=== PATIENT | female | born 1980 | race Native Hawaiian/Other Pacific Islander ===

== ENCOUNTER → 2019-01-06 | Outpatient (CLI) | payer OTHER ==
[~2019-01-06] MED LIST: ALBIPROI INH; ALBU90OI INH; AMOX500 PO; AZIT250 PO; BENZ100A PO; CARI350 PO; CEPH500 PO; Camila0.35 MG PO; Cyclobenzaprine5 MG PO; GUAPHELA PO; Golytely Solu4000 ML PO; HYDACE5 PO; HYDGUAL120 PO; IBUP600 PO; IBUP800 PO; LORA1 PO; MEDR150I; MONT10T PO; Naprosyn500 MG PO; OXYACE5T PO; PENVK500 PO; PRED20 PO; PROCODE120 PO; PROM25 PO; PSEU120ER PO; RXCEPH500 PO; RXHYDACE PO; RXPROM25 PO; SERT25; SULTRIDS PO
[2019-01-08 15:06] LABS: HPV 16 Negative (Negative); HPV 18 Negative (Negative); HPV OTHER HR TYPES Negative (Negative)
== END | disposition home or self-care (01) ==
LOC: LAB SRC 16:15 → LAB SHORT 16:15
PROVIDERS: Registered Nurse
DX: Z12.4 Encounter for screening for malignant neoplasm of cervix (principal)
CPT/HCPCS: 87624; G0123

== ENCOUNTER 2019-03-26 02:19 | Emergency (ER) | payer OTHER ==
[~2019-03-26] VITALS: Ht 170.2 cm; Wt 113.4 kg
[~2019-03-26 02:19] MED LIST changes: -Cyclobenzaprine5 MG PO; -MONT10T PO
[2019-03-26] MEDS ORDERED: MONT10T PO (02:39)
[2019-03-26] MEDS ORDERED: ALBU90OI INH (02:39)
[2019-03-26] MEDS ORDERED: Cyclobenzaprine5 MG PO (02:59)
== END 2019-03-26 04:19 | disposition home or self-care (01) ==
LOC: ER 02:19
DX: M62.838 Other muscle spasm (principal); Z87.891 Personal history of nicotine dependence; Z91.030 Bee allergy status; Z79.899 Other long term (current) drug therapy
CPT/HCPCS: 96372; 99283-25; J1885

== ENCOUNTER 2019-08-15 20:31 | Emergency (ER) | payer OTHER ==
[~2019-08-15] VITALS: Ht 170.2 cm; Wt 115.7 kg
[~2019-08-15 20:31] MED LIST changes: +Cyclobenzaprine5 MG PO; +MONT10T PO
[2019-08-15] MEDS ORDERED: Prednisone20 MG PO (23:29)
== END 2019-08-15 23:41 | disposition home or self-care (01) ==
LOC: ER 20:31
DX: J45.909 Unspecified asthma, uncomplicated (principal); Z91.030 Bee allergy status; Z79.899 Other long term (current) drug therapy; Z87.891 Personal history of nicotine dependence
CPT/HCPCS: 71046; 94644; 99283-25; J7512

== ENCOUNTER 2019-09-09 10:54 | Inpatient (IN) | payer OTHER ==
[~2019-09-09] VITALS: Ht 170.2 cm; Wt 117.7 kg
[~2019-09-09 10:54] MED LIST changes: +Prednisone20 MG PO
[2019-09-09 11:37] LABS: BASOPHILS ABSOLUTE AUTO 0.04 K/mm3 (0.00-0.23); BASOPHILS PERCENT AUTO 0 % (0-2); EOSINOPHILS ABSOLUTE AUTO 0.16 K/mm3 (0.00-0.68); EOSINOPHILS PERCENT AUTO 1 % (0-6); Hematocrit 46.2 % (33.0-51.0); Hemoglobin 15.3 g/dL (11.5-16.0); IMMATURE GRAN ABSOLUTE AUTO 0.05 K/mm3 (0.00-0.10); IMMATURE GRAN PERCENT AUTO 0 % (0-1); LYMPHOCYTES ABSOLUTE AUTO 0.69 K/mm3 (0.84-5.20); LYMPHOCYTES PERCENT AUTO 5 % (21-46); MONOCYTES ABSOLUTE AUTO 0.68 K/mm3 (0.16-1.47); MONOCYTES PERCENT AUTO 5 % (4-13); Mean Corpuscular HGB 32.1 pg (26.0-34.0); Mean Corpuscular HGB Conc 33.1 g/dL (31.5-36.5); Mean Corpuscular Volume 97 fL (80-100); Mean Platelet Volume 8.7 fL (9.1-12.4); NEUTROPHILS ABSOLUTE AUTO 12.25 K/mm3 (1.96-9.15); NEUTROPHILS PERCENT AUTO 88 % (41-73); Platelet Count 300 K/mm3 (150-400); RDW Coefficient Variation 12.9 % (11.7-14.2); RDW Standard Deviation 46.5 fL (35.1-46.3); Red Blood Cell Count 4.76 M/mm3 (3.80-5.20); White Blood Cell Count 13.87 K/mm3 (4.00-11.30)
[2019-09-09 12:00] LABS: Alanine Aminotransfer (ALT/SGP 34 U/L (12-78); Albumin, Blood 3.6 g/dL (3.4-5.0); Albumin/Globulin Ratio 0.9 (0.8-1.8); Alk Phos 94 U/L (50-136); Anion Gap 9 mmol/L (6-16); Aspartate Aminotrans (AST/SGOT 18 U/L (12-37); Bilirubin, Total 0.5 mg/dL (0.1-1.0); Blood Urea Nitrogen 9 mg/dL (8-24); Bun/Creatinine Ratio 11.3 (12.0-20.0); CO2, Blood 23 mmol/L (21-32); Calcium, Blood 8.9 mg/dL (8.5-10.1); Chloride, Blood 108 mmol/L (98-108); Globulin, Blood 4.2 g/dL (2.2-4.0); Glomerular Filtration Rate >60 (60-); Glucose, Blood 124 mg/dL (70-99); Potassium, Blood 3.4 mmol/L (3.5-5.5); Sodium, Blood 140 mmol/L (136-145); Total Protein, Blood 7.8 g/dL (6.4-8.2); Troponin I <0.015 ng/mL (0.000-0.040)
[2019-09-09] MEDS ORDERED: FLUT1DIS2 INH (13:15)
[2019-09-09] MEDS ORDERED: Cetirizine HCl10 MG PO (13:17)
[2019-09-09] MEDS ORDERED: PRED10 PO (13:36)
[2019-09-09] MEDS ORDERED: CALCIUM 600 +1 EA11 PO (15:15)
[2019-09-09] MEDS ORDERED: Microgestin1 EAC1 PO (15:17)
--- NOTE | 2019-09-09 16:55 | NUR ---
PT ARRIVED TO THE MEDICAL FLOOR FROM THE ER VIA STRETCHER, A/OX3, PLEASANT AND COOPERATIVE, THE PT WAS ABLE TO TRANSFER TO THE BED WITH MINIMAL ASSIST, THE PT WAS VERY SOB AND WHEEZY WITH LITTLE ACTIVITY, A BREATHING TX WAS ORDERED AND GIVEN BY RT ON ARRIVAL TO THE FLOOR, PT WAS ORIENTED TO THE ROOM LAYOUT AND CALL SYSTEM, PT ANSWERS QUESTIONS APPROPRIATLY, PT DECLINED THE SCUD'S , HOWEVER, ACCEPTED LOVENOX FOR DVT PREVENTION, CALL LIGHT IN REACH, WILL CONTINUE TO MONITOR AND ASSESS FOR CHANGES
[2019-09-09 19:32] LABS: Adenovirus Not Detected (NOT DETECT); Bordetella pertussis Not Detected (NOT DETECT); Chlamydophila pneumoniae Not Detected (NOT DETECT); Coronavirus 229E Not Detected (NOT DETECT); Coronavirus HKU1 Not Detected (NOT DETECT); Coronavirus NL63 Not Detected (NOT DETECT); Coronavirus OC43 Not Detected (NOT DETECT); Human Metapneumovirus Not Detected (NOT DETECT); Human Rhinovirus/Enterovirus Detected (NOT DETECT); Influenza A Not Detected (NOT DETECT); Influenza A/2009-H1 Not Detected (NOT DETECT); Influenza A/H1 Not Detected (NOT DETECT); Influenza A/H3 Not Detected (NOT DETECT); Influenza B Not Detected (NOT DETECT); Mycoplasma pneumoniae Not Detected (NOT DETECT); Parainfluenza Virus 1 Not Detected (NOT DETECT); Parainfluenza Virus 2 Not Detected (NOT DETECT); Parainfluenza Virus 3 Not Detected (NOT DETECT); Parainfluenza Virus 4 Not Detected (NOT DETECT); Respiratory Syncytial Virus Not Detected (NOT DETECT)
--- NOTE | 2019-09-10 | NUR ---
09/09/191999 PT HAS WHEEZING THROUGHOUT WITH DYSPNEA NOTED WITH SLIGHT EXERTION; DENIES PAIN OR NAUSEA; RECEIVING NEBULIZER TREATMENTS PRN VIA RESPIRATORY THERAPY.
[2019-09-10 05:02] LABS: BASOPHILS ABSOLUTE AUTO 0.01 K/mm3 (0.00-0.23); BASOPHILS PERCENT AUTO 0 % (0-2); EOSINOPHILS ABSOLUTE AUTO 0.01 K/mm3 (0.00-0.68); EOSINOPHILS PERCENT AUTO 0 % (0-6); Hematocrit 42.8 % (33.0-51.0); Hemoglobin 14.2 g/dL (11.5-16.0); IMMATURE GRAN ABSOLUTE AUTO 0.05 K/mm3 (0.00-0.10); IMMATURE GRAN PERCENT AUTO 0 % (0-1); LYMPHOCYTES ABSOLUTE AUTO 0.64 K/mm3 (0.84-5.20); LYMPHOCYTES PERCENT AUTO 5 % (21-46); MONOCYTES ABSOLUTE AUTO 0.21 K/mm3 (0.16-1.47); MONOCYTES PERCENT AUTO 2 % (4-13); Mean Corpuscular HGB 31.6 pg (26.0-34.0); Mean Corpuscular HGB Conc 33.2 g/dL (31.5-36.5); Mean Corpuscular Volume 95 fL (80-100); Mean Platelet Volume 8.9 fL (9.1-12.4); NEUTROPHILS ABSOLUTE AUTO 12.86 K/mm3 (1.96-9.15); NEUTROPHILS PERCENT AUTO 93 % (41-73); Platelet Count 290 K/mm3 (150-400); RDW Coefficient Variation 13.2 % (11.7-14.2); RDW Standard Deviation 46.6 fL (35.1-46.3); Red Blood Cell Count 4.49 M/mm3 (3.80-5.20); White Blood Cell Count 13.78 K/mm3 (4.00-11.30)
[2019-09-10 05:35] LABS: Anion Gap 6 mmol/L (6-16); Blood Urea Nitrogen 9 mg/dL (8-24); Bun/Creatinine Ratio 13.2 (12.0-20.0); CO2, Blood 22 mmol/L (21-32); Calcium, Blood 8.6 mg/dL (8.5-10.1); Chloride, Blood 113 mmol/L (98-108); Creatinine, Blood 0.68 mg/dL (0.40-1.00); Glomerular Filtration Rate >60 (60-); Glucose, Blood 138 mg/dL (70-99); Potassium, Blood 4.2 mmol/L (3.5-5.5); Sodium, Blood 141 mmol/L (136-145)
--- NOTE | 2019-09-10 05:55 | NUR ---
SHIFT SUMMARY: 39 Y/O OB[place] FEMALE HAD RESTLESS NIGHT AT TIMES THIS SHIFT WITH LUNG SOUNDS WHEEZING THROUGHOUT WITH DYPSNEA NOTED SLIGHT ACTIVITY; TALKING LOW VOICE [place]; DENIES PAIN OR NAUSEA; BED LOW POSITION AND CALL LIGHT AT SIDE; ABLE AMBULATE TO BATHROOM AND BACK THIS SHIFT PER SELF; PT RECEIVED PRN NEBULIZER TREATMENTS VIA RESPIRATORY THERAPY.
--- NOTE | 2019-09-10 15:36 | NUR ---
Upon receiving an admit referral for spiritual care, I visit patient. Patient shares about her asthma issues, about her housing arrangement that may exacerbate the issue with the mold problems and about [place] of people that surround her life. We discuss patient's spiritual journey. Patient shares her personal thoughts on God and yazidism. I listen empathically, normalize patient's experience encourage self-care and provide spiritual guidance and prayer. Patient responds well and shows signs of improved spiritual direction and peace. I will continue to remain available to patient and family.
--- NOTE | 2019-09-10 18:17 | NUR ---
PT STILL EXPERIENCING SOB WITH ACTIVITY, EXP WHEEZE T/O LUNGS. IV SOLUMEDROL CHANGED TO PO PREDNISONE. PT DOES SAY THAT SHE IS FEELING BETTER, DR SUH TO [facility] TOMORROW. PT HOPES TO BE DISCHARGED. NO ACUTE CHANGES NOTED THIS SHIFT, WILL CONTINUE TO MONITOR AND REPORT TO ONCOMING RN
--- NOTE | 2019-09-11 05:29 | NUR ---
SHIFT SUMMARY: 39 Y/O OB[place] FEMALE RESTED COMFORTABLY ALL SHIFT WITH NO DYSPNEA OR SOB NOTED WITH ACTIVITY; LS SOUNDS ARE DIMINISHED THROUGHOUT WITH OCCASIONAL NON PRODUCTIVE COUGH; PT APPEARS READY FOR POSSIBLE DISCHARGE HOME TODAY; PT TAUGHT NEED FOR SMOKING CESSATION DUE TO ASTHMA WITH ACKNOWLEDGEMENT NOTED; PT DENIES PAIN OR NAUSEA; BED LOW POSITION WITH CALL LIGHT AT SIDE.
--- NOTE | 2019-09-11 19:24 | NUR ---
PT DOING BETTER THIS AFTERNOON, ABLE TO AMBULATE SOME IN HALLWAY. PO PREDNISONE DISCONTINUED AND IV SOLUMEDROL STARTED. NO C/O PAIN TODAY, NO ACUTE CHANGES NOTED THIS SHIFT, BEDSIDE REPORT GIVEN
--- NOTE | 2019-09-12 06:14 | NUR ---
SHIFT SUMMARY PT IS A 39 Y/O FEMALE, ADMITTED FOR ASTHMA EXACERBATION. SHE IS A&O X 4, AND INDEPENDENT IN THE ROOM. PT DENIED ANY ACUTE SOB, THOUGH LUNGS HAD COARSE WHEEZES THROUGHOUT. PT REMAINS ON RA, SATTING > 90%. NO COMPLAINTS OF PAIN OR NAUSEA. VITAL SIGNS STABLE. NO ACUTE CHANGES IN PT CONDITION NOTED. WILL CONTINUE TO MONITOR AND TREAT PER EMAR UNTIL HAND OFF TO DAY SHIFT RN.
[2019-09-12] MEDS ORDERED: Prednisone20 MG PO (11:46)
--- NOTE | 2019-09-12 18:17 | NUR ---
DISCHARGE PT DISCHARGED TO HOME. THIS RN EXPLAINED DISCHARGE INSTRUCTIONS AND MEDICATIONS TO PT AND SHE REPORTS SHE UNDERSTANDS. SOLUMEDROL ADMINISTERED PER ORDERS FOR PT TO BE DISCHARGED. IV REMOVED WITHOUT DIFFICULTY. PT TRANSFERRED TO PRIVATE VEHICLE VIA WHEELCHAIR. BELONGINGS WITH PT.
== END 2019-09-12 16:35 | disposition home or self-care (01) | DRG 202 ==
LOC: ER 10:54 → MEDS 10:55
PROVIDERS: Emergency Medicine; Nurse Practitioner Acute Care; ADMIT Internal Medicine
DX: J45.901 Unspecified asthma with (acute) exacerbation (principal); R65.10 Systemic inflammatory response syndrome (SIRS) of non-infectious origin without acute organ dysfunction; Z68.41 Body mass index [BMI] 40.0-44.9, adult; E87.6 Hypokalemia; E66.01 Morbid (severe) obesity due to excess calories; B97.89 Other viral agents as the cause of diseases classified elsewhere; Z87.891 Personal history of nicotine dependence
CPT/HCPCS: 0099U; 36415; 71046; 80048; 80053; 84443; 84484; 85025; 93005; 93010; 94640; 94760; 96361; 96365; 96372; 96375; 96376; 99285-25; G0378; J1650; J2930; J3475; J7030; J7512

== ENCOUNTER → 2020-05-04 | Outpatient (CLI) | payer OTHER ==
[~2020-05-04] MED LIST changes: +CALCIUM 600 +1 EA11 PO; +Cetirizine HCl10 MG PO; +FLUT1DIS2 INH; +Microgestin1 EAC1 PO; +PRED10 PO
[2020-05-05 11:37] LABS: Candida species (DNA Probe) Negative (NEGATIVE); G. vaginalis (DNA Probe) Positive (NEGATIVE); T. vaginalis (DNA Probe) Negative (NEGATIVE)
== END | disposition home or self-care (01) ==
LOC: LAB SHORT 17:22 → LAB 17:22
PROVIDERS: Surgery Vascular Surgery
DX: R59.0 Localized enlarged lymph nodes (principal)
CPT/HCPCS: 87480; 87510; 87660

== ENCOUNTER 2020-06-20 07:00 | Day surgery (SDC) | payer OTHER ==
[~2020-06-20] VITALS: Ht 172.7 cm; Wt 116.5 kg
[~2020-06-20 07:00] MED LIST changes: +XYZAL5 MG PO
[2020-06-20] MEDS ORDERED: ALBU90OI INH (07:33)
--- NOTE | 2020-06-20 07:53 | NUR ---
Ambulatory in Day Surgery. History, Chart, Medications and Allergies reviewed before start of procedure.Patient confirms NPO status and agrees with scheduled surgery. Patient reports completing Chlorhexadine shower X2 prior to admission to hospital.Surgical site prepped with 2% Chlorhexidine cloth wipe. Lungs clear T/O to Auscultation. Patient States Post-Procedure ride home has been arranged WITH BOYFRIEND.
--- NOTE | 2020-06-20 10:35 | NUR ---
DISCHARGE SUMMARY PT A&OX4, VSS, WALKED OFF UNIT (REFUSED WC), WITH RN, TO MEET BOYFRIEND/LEAD ASSEMBLER IN WAITING AREA, WITH ALL PERSONAL POSSESSIONS INCLUDING DC PACKET AND 1 NARC SCRIPT. DC INSTRUCTIONS PROVIDED. PT REP UNDERSTANDING THOSE INSTRUCTIONS. IV DC'D.
[2020-06-20 10:48] LABS: Performing Lab SYMBIODX; Test Name FLOW CYTOMETRY
--- NOTE | 2020-06-20 16:45 | NUR ---
06/20/20 1645 Concepcion Leija VERIFICATIONS: EDIT CHART.
[2020-06-23 13:50] LABS: Performing Lab SYMBIODX; Test Name TISSUE BIOPSY
== END 2020-06-20 10:35 | disposition home or self-care (01) ==
LOC: ORSCMMR 07:00 → ORD 08:30 → ORSCMMR 10:35
PROVIDERS: Surgery
PROC: 07BH0ZX Excision of Right Inguinal Lymphatic, Open Approach, Diagnostic (ICD-10-PCS; principal; 2020-06-20 08:30)
DX: R59.1 Generalized enlarged lymph nodes (principal); Z87.891 Personal history of nicotine dependence; E66.01 Morbid (severe) obesity due to excess calories; Z68.39 Body mass index [BMI] 39.0-39.9, adult; Z79.899 Other long term (current) drug therapy
CPT/HCPCS: 87071; 87075; 87205; 88184; 88185; 88305; 88312; J0690; J2250; J2704; J3010; J7120

== ENCOUNTER 2020-07-06 14:38 | Emergency (ER) | payer OTHER ==
[~2020-07-06] VITALS: Ht 170.2 cm; Wt 115.7 kg
== END 2020-07-06 15:48 | disposition home or self-care (01) ==
LOC: ER 14:38
DX: L76.32 Postprocedural hematoma of skin and subcutaneous tissue following other procedure (principal); Y83.8 Other surgical procedures as the cause of abnormal reaction of the patient, or of later complication, without mention of misadventure at the time of the procedure; J45.909 Unspecified asthma, uncomplicated; Z91.030 Bee allergy status; Z79.899 Other long term (current) drug therapy; Z87.891 Personal history of nicotine dependence
CPT/HCPCS: 99283

== ENCOUNTER 2020-10-12 07:44 | Day surgery (SDC) | payer OTHER ==
[~2020-10-12] VITALS: Ht 170.2 cm; Wt 121.5 kg
[~2020-10-12 07:44] MED LIST changes: +BUSP5 PO; +CALCIUM CIT 311 EACH PO; +FLUT1DIS5 INH; +TRIDERM28.4 GM TOP
--- NOTE | 2020-10-12 10:06 | NUR ---
10/12/20 1006 Claude Soto LIDOCAINE 2% 1:100,000 DILUTED DOWN BY RN PER ORDER TO CONSTITUTE LIDOCAINE 1% 1:200,000 FOR INJECTION AT [facility] BY DR. OATES.
--- NOTE | 2020-10-12 11:38 | NUR ---
10/12/20 1138 [place] ASSISTED TO BR TO VOID VIA WC.
== END 2020-10-12 12:06 | disposition home or self-care (01) ==
LOC: ORSCSDS 07:44
PROVIDERS: Otolaryngology
PROC: 0GTG0ZZ Resection of Left Thyroid Gland Lobe, Open Approach (ICD-10-PCS; principal; 2020-10-12 09:00)
DX: C73 Malignant neoplasm of thyroid gland (principal); R13.14 Dysphagia, pharyngoesophageal phase; J45.909 Unspecified asthma, uncomplicated; E66.01 Morbid (severe) obesity due to excess calories; Z68.41 Body mass index [BMI] 40.0-44.9, adult; Z87.891 Personal history of nicotine dependence; Z79.899 Other long term (current) drug therapy
CPT/HCPCS: 88307; J1100; J2405; J2704; J3010; J7120

== ENCOUNTER 2020-12-18 17:52 | Emergency (ER) | payer OTHER ==
[~2020-12-18] VITALS: Ht 172.7 cm; Wt 124.7 kg
== END 2020-12-18 20:23 | disposition home or self-care (01) ==
LOC: ER 17:52
DX: M25.561 Pain in right knee (principal); Z91.030 Bee allergy status; Z79.899 Other long term (current) drug therapy
CPT/HCPCS: 73560-RT; 99283-25

== ENCOUNTER → 2021-06-02 | Outpatient (CLI) | payer OTHER ==
[2021-06-05 14:11] LABS: CHLAMYDIA TRACHOMATIS, NAA Negative (Negative); HPV 16 Negative (Negative); HPV 18 Negative (Negative); HPV OTHER HR TYPES Negative (Negative)
== END ==
LOC: LAB SHORT 17:15
PROVIDERS: Registered Nurse
DX: Z12.4 Encounter for screening for malignant neoplasm of cervix (principal); Z91.038 Other insect allergy status
CPT/HCPCS: 87491; 87591; 87624; G0123

== ENCOUNTER 2022-02-03 04:18 | Emergency (ER) | payer BC, OTHER ==
[~2022-02-03] VITALS: Ht 172.7 cm; Wt 131.5 kg
[2022-02-03] MEDS ORDERED: Cyclobenzaprine5 MG PO (07:34)
[2022-02-03] MEDS ORDERED: OXYCODONE-ACET1 EAC3 PO (07:34)
== END 2022-02-03 08:30 | disposition home or self-care (01) ==
LOC: ER 04:18
DX: M79.604 Pain in right leg (principal); Z87.891 Personal history of nicotine dependence
CPT/HCPCS: 93971; A9270

== ENCOUNTER 2024-11-18 22:16 | Emergency (ER) | payer BC, OTHER ==
[~2024-11-18] VITALS: Ht 170.2 cm; Wt 127.0 kg
[~2024-11-18 22:16] MED LIST changes: +OXYCODONE-ACET1 EAC3 PO
[2024-11-18 22:45] VITALS: BP 161/105
[2024-11-18] MEDS ORDERED: NS 1,000 ML IV SCH (22:50)
[2024-11-18] MEDS ORDERED: Ondansetron HCl 2 MG / ML 2ML Vial IV ONE (22:50)
[2024-11-18 23:08] LABS: BASOPHILS ABSOLUTE AUTO 0.07 K/mm3 (0.00-0.23); BASOPHILS PERCENT AUTO 1 % (0-2); EOSINOPHILS ABSOLUTE AUTO 0.88 K/mm3 (0.00-0.68); EOSINOPHILS PERCENT AUTO 6 % (0-6); Hematocrit 41.8 % (33.0-51.0); IMMATURE GRAN ABSOLUTE AUTO 0.06 K/mm3 (0.00-0.10); IMMATURE GRAN PERCENT AUTO 0 % (0-1); LYMPHOCYTES ABSOLUTE AUTO 2.35 K/mm3 (0.84-5.20); LYMPHOCYTES PERCENT AUTO 15 % (21-46); MONOCYTES ABSOLUTE AUTO 0.86 K/mm3 (0.16-1.47); MONOCYTES PERCENT AUTO 6 % (4-13); Mean Corpuscular HGB 31.7 pg (26.0-34.0); Mean Corpuscular HGB Conc 33.5 g/dL (31.5-36.5); Mean Corpuscular Volume 95 fL (80-100); Mean Platelet Volume 8.8 fL (9.1-12.4); NEUTROPHILS ABSOLUTE AUTO 11.15 K/mm3 (1.96-9.15); NEUTROPHILS PERCENT AUTO 73 % (41-73); Platelet Count 329 K/mm3 (150-400); RDW Coefficient Variation 12.8 % (11.7-14.2); RDW Standard Deviation 44.3 fL (35.1-46.3); Red Blood Cell Count 4.41 M/mm3 (3.80-5.20); White Blood Cell Count 15.37 K/mm3 (4.00-11.30)
[2024-11-18 23:32] LABS: Alanine Aminotransfer (ALT/SGP 21 U/L (12-78); Albumin, Blood 3.7 g/dL (3.4-5.0); Albumin/Globulin Ratio 0.9 (0.8-1.8); Alk Phos 94 U/L (50-136); Anion Gap 11 mmol/L (3-11); Aspartate Aminotrans (AST/SGOT 20 U/L (12-37); Beta HCG, Quantitative, Serum <1 mIU/mL (0-3); Bilirubin, Total 0.3 mg/dL (0.1-1.0); Blood Urea Nitrogen 8 mg/dL (8-24); Bun/Creatinine Ratio 11.3 (12.0-20.0); CO2, Blood 23 mmol/L (21-32); Calcium, Blood 9.2 mg/dL (8.5-10.1); Chloride, Blood 108 mmol/L (98-108); Creatinine, Blood 0.71 mg/dL (0.40-1.00); Globulin, Blood 3.9 g/dL (2.2-4.0); Glomerular Filtration Rate 108 (60-); Glucose, Blood 119 mg/dL (70-99); Potassium, Blood 3.5 mmol/L (3.5-5.5); Sodium, Blood 138 mmol/L (136-145); Total Protein, Blood 7.6 g/dL (6.4-8.2)
[2024-11-19] MEDS ORDERED: Clindamycin HCl 150 MG Cap PO ONE ×2 (00:10)
[2024-11-19] MEDS ORDERED: Metoclopramide HCl 5MG / ML 2ML Vial IV ONE (00:10)
[2024-11-19 00:11] LABS: Source, Urine Clean Catch
[2024-11-19 00:16] LABS: Appearance, Urine Clear (Clear); Bilirubin, Urine Neg (Neg); Blood, Urine Neg (Neg); Glucose Qualitative, Urine Neg (Neg); Ketones, Urine Neg (Neg); Leukocyte Esterase, Urine Neg (Neg); Nitrite, Urine Neg (Neg); Protein, Urine Neg (Neg); Urobilinogen, Urine NORM (Normal)
[2024-11-19] MEDS ORDERED: METO10 PO (00:21)
[2024-11-19] MEDS ORDERED: CLIN150 PO (00:21)
[2024-11-19 00:30] LABS: Color, Urine Pale Yellow (P-Yellow)
== END 2024-11-19 00:55 | disposition home or self-care (01) ==
LOC: ER 22:16
PROVIDERS: Student in an Organized Health Care Education/Training Program
DX: K04.7 Periapical abscess without sinus (principal); K52.9 Noninfective gastroenteritis and colitis, unspecified; Z91.030 Bee allergy status
CPT/HCPCS: 80053; 81003; 83605; 84702; 85025; 96361; 96374; 96375; 99284-25; A9270; J2405; J2765; J7030

== ENCOUNTER 2025-02-27 21:31 | Emergency (ER) | payer BC, OTHER ==
[~2025-02-27] VITALS: Ht 172.7 cm; Wt 131.5 kg
[~2025-02-27 21:31] MED LIST changes: +CLIN150 PO; +METO10 PO
[2025-02-27] MEDS ORDERED: Ondansetron HCl 2 MG / ML 2ML Vial IV ONE (22:00)
[2025-02-27] MEDS ORDERED: XYZAL5 MG PO (22:13)
[2025-02-27] MEDS ORDERED: MICROGESTIN 211 EACH PO (22:13)
[2025-02-27] MEDS ORDERED: VENL75ER PO (22:13)
[2025-02-27 22:14] LABS: BASOPHILS ABSOLUTE AUTO 0.04 K/mm3 (0.00-0.23); BASOPHILS PERCENT AUTO 0 % (0-2); EOSINOPHILS ABSOLUTE AUTO 0.84 K/mm3 (0.00-0.68); EOSINOPHILS PERCENT AUTO 8 % (0-6); Hematocrit 38.9 % (33.0-51.0); Hemoglobin 12.7 g/dL (11.5-16.0); IMMATURE GRAN ABSOLUTE AUTO 0.08 K/mm3 (0.00-0.10); IMMATURE GRAN PERCENT AUTO 1 % (0-1); LYMPHOCYTES ABSOLUTE AUTO 2.91 K/mm3 (0.84-5.20); LYMPHOCYTES PERCENT AUTO 27 % (21-46); MONOCYTES ABSOLUTE AUTO 0.73 K/mm3 (0.16-1.47); MONOCYTES PERCENT AUTO 7 % (4-13); Mean Corpuscular HGB Conc 32.6 g/dL (31.5-36.5); Mean Corpuscular Volume 97 fL (80-100); NEUTROPHILS ABSOLUTE AUTO 6.05 K/mm3 (1.96-9.15); NEUTROPHILS PERCENT AUTO 57 % (41-73); NRBC ABSOLUTE 0.00 K/mm3 (0.00-0.02); NRBC Auto 0.0 /100 WBC (0.0-0.2); Platelet Count 279 K/mm3 (150-400); RDW Coefficient Variation 13.3 % (11.7-14.2); RDW Standard Deviation 47.8 fL (35.1-46.3)
[2025-02-27] MEDS ORDERED: Vitamin D1000 UNI1 (22:14)
[2025-02-27] MEDS ORDERED: TRAZ50 PO (22:14)
[2025-02-27] MEDS ORDERED: Ketorolac Tromethamine 15mg Vial IV ONE ×2 (22:25→23:25)
[2025-02-27 22:34] LABS: Alanine Aminotransfer (ALT/SGP 25.0 U/L (12-78); Albumin, Blood 3.3 g/dL (3.4-5.0); Albumin/Globulin Ratio 0.8 (0.8-1.8); Anion Gap 6.0 mmol/L (3-11); Aspartate Aminotrans (AST/SGOT 15.0 U/L (12-37); Bilirubin, Total 0.1 mg/dL (0.1-1.0); Blood Urea Nitrogen 10.0 mg/dL (8-24); CO2, Blood 28.0 mmol/L (21-32); Calcium, Blood 8.5 mg/dL (8.5-10.1); Chloride, Blood 107.0 mmol/L (98-108); Creatinine, Blood 0.72 mg/dL (0.40-1.00); Globulin, Blood 4.1 g/dL (2.2-4.0); Glucose, Blood 103.0 mg/dL (70-99); Potassium, Blood 3.7 mmol/L (3.5-5.5); Sodium, Blood 137.0 mmol/L (136-145); Total Protein, Blood 7.4 g/dL (6.4-8.2)
[2025-02-27] MEDS ORDERED: NS 1,000 ML IV SCH (23:25)
[2025-02-28 00:34] LABS: Source, Urine Clean Catch
[2025-02-28 00:58] LABS: Bilirubin, Urine Neg (Neg); Glucose Qualitative, Urine Neg (Neg); Ketones, Urine Neg (Neg); Leukocyte Esterase, Urine Neg (Neg); Protein, Urine Neg (Neg); Specific Gravity, Urine 1.010 (1.003-1.022); Urobilinogen, Urine NORM (Normal)
[2025-02-28 01:15] LABS: Color, Urine Pale Yellow (P-Yellow)
[2025-02-28 01:29] VITALS: BP 113/65
== END 2025-02-28 01:27 | disposition home or self-care (01) ==
LOC: ER 21:31
PROVIDERS: Physician Assistant
DX: R10.31 Right lower quadrant pain (principal); R19.7 Diarrhea, unspecified; Z59.89 Other problems related to housing and economic circumstances; J45.909 Unspecified asthma, uncomplicated; Z91.030 Bee allergy status; Z79.899 Other long term (current) drug therapy; Z79.2 Long term (current) use of antibiotics
CPT/HCPCS: 74177; 76705; 80053; 81003; 83690; 84703; 85025; 93005; 93010; 96374-59; 96375; 99284-25; J1885; J2405; J7030; Q9967